=== PATIENT | female | born 1950 | race Caucasian/White ===

== ENCOUNTER → 2021-02-22 | Outpatient (CLI) | payer OTHER ==
[~2021-02-22] MED LIST: ASPIRIN EC81 MG PO; ATORVASTATIN CA40 MG PO; CLOPIDOGREL75 MG PO; COZAAR25 MG PO; ISOSORBIDE MONO30 MG PO; LANTUS100 UNIT/1 SC; LIPITOR80 MG PO; METOPROLOL SUCC25 MG PO; NITROGLYCERIN0.4 MG SL; NORVASC5 MG PO; PANTOPRAZOLE SO40 MG PO; SYNTHROID 100100 MCG PO
== END ==
LOC: HEART 5 12:52
DX: I25.10 Atherosclerotic heart disease of native coronary artery without angina pectoris (principal); I11.9 Hypertensive heart disease without heart failure; R94.39 Abnormal result of other cardiovascular function study
CPT/HCPCS: 93306

== ENCOUNTER → 2021-06-15 | Outpatient (CLI) | payer MEDICARE | LOC: KOH-I 06-10 13:00 | DX: I73.9 Peripheral vascular disease, unspecified (principal) | CPT/HCPCS: 93925 ==